=== PATIENT | female | born 1950 | race American Indian/Alaskan Native ===

== ENCOUNTER → 2016-06-22 | Outpatient (CLI) | payer MEDICARE, OTHER ==
[~2016-06-22] MED LIST: ALPRAZOLAM PO; AMITRIPTYLINE100 MG PO; AMITRYPTYLINE PO; ASPIRIN; ASPIRIN PO; ASPIRIN81 M1 PO; ASPIRIN81 MG PO; BP MED; CALCIUM + D 6001 TA1 PO; CIPROFLOXACIN500 M1 PO; FLEXERIL10 MG PO; HCTZ PO; HORMONE; IMITREX PO; K-DUR20 ME1 PO; KEPPRA500 MG PO; KLONOPIN; KLONOPIN PO; KLONOPIN0.5 MG PO; LISINOPRIL-HCTZ1 T16 PO; LORTAB 7.5-5001 TAB PO; LORTAB 7.51 TAB PO; PHENERGAN25 M1 PO; PROPRANOLOL PO; REGLAN10 MG PO; SOMA PO; TORADOL10 MG PO; TYLENOL #3 PO; VOLTAREN75 MG PO; WALGREEN'S PHARMACY; ZANAFLEX PO; ZANTAC; ZOLOFT; ZOLOFT PO; ZYRTEC
[2016-06-22 16:07] LABS: BUN/CREATININE RATIO 18.46; CALCIUM SERUM 9.4 mg/dL (8.4-10.2); CREATININE SERUM 1.3 mg/dL (0.6-1.4); GLOM FILT RATE Estimated 42.7 mL/min (>60); MAGNESIUM 2.5 mg/dL (1.6-3.0)
[2016-06-22 16:23] LABS: POTASSIUM 2.8 mmol/L (3.5-5.1)
== END | disposition home or self-care (01) ==
LOC: CECH 13:32
DX: R07.9 Chest pain, unspecified (principal); R60.9 Edema, unspecified
CPT/HCPCS: 36415; 80048; 83735; 93306

== ENCOUNTER → 2016-06-27 | Outpatient (CLI) | payer MEDICARE, OTHER ==
[2016-06-27 10:23] LABS: BUN/CREATININE RATIO 17.69; CALCIUM SERUM 9.6 mg/dL (8.4-10.2); CREATININE SERUM 1.3 mg/dL (0.6-1.4); GLOM FILT RATE Estimated 42.7 mL/min (>60); MAGNESIUM 2.3 mg/dL (1.6-3.0); POTASSIUM 3.7 mmol/L (3.5-5.1)
== END | disposition home or self-care (01) ==
LOC: CLAB 09:01
DX: R60.9 Edema, unspecified (principal)
CPT/HCPCS: 36415; 80048; 83735

== ENCOUNTER → 2016-07-09 | Outpatient (CLI) | payer MEDICARE, OTHER ==
--- NOTE | ~2016-07-09 | ST ---
Unit #: [id number] #: [id number] Patient: TAMARA GOMEZ ANDRES [id number] [address] [address] [id number] O MR#: [id number] NAME: TAMARA GOMEZ ANDRES : 1950 SEX: F STUDY DATE/TIME: UNIT: [facility] ROOM: STUDY DESCRIPTION: Stress Test Attending Physician: Britton Ellis M.D. Referring Physician: Britton Ellis M.D. Primary Care Physician: Dionne Sawant M.D. CARDIOLOGY REPORT EXAM ECG Portion INDICATIONS Chest discomfort, dyspnea. SUMMARY The patient underwent Lexiscan protocol. Patient's resting heart rate was 75 beats/minute which increased to 96 beats/minute representing 62% of the maximum age-predicted heart rate with Lexiscan infusion. The patient's resting blood pressure 130/71 mmHg which increased to 135/76 mmHg with Lexiscan infusion. Patient's resting ECG showed normal sinus rhythm with normal ST segments. Patient's stress ECG shows normal sinus rhythm with preserved ST segments. There is no ventricular or supraventricular ectopy noted. There are no pauses noted. CONCLUSION 1. Negative ECG portion of the Lexiscan stress test portion for ischemia. 2. Perfusion imaging to be dictated separately. Dictated by... Jaye Adame M.D. [place]/df TD: 07/10/2016 06:19 JOB #: [id number] CARDIOLOGY REPORT Page 1 of 1 X JAYE ADAME MD CARDIOLOGY REPORT
--- NOTE | ~2016-07-09 | TH ---
Unit #: [id number] #: [id number] Patient: TAMARA GOMEZ ANDRES [id number] [address] [address] [id number] O MR#: [id number] NAME: TAMARA GOMEZ ANDRES : 1950 SEX: F STUDY DATE/TIME: UNIT: [facility] ROOM: STUDY DESCRIPTION: Nuclear Study Attending Physician: Britton Ellis M.D. Referring Physician: Britton Ellis M.D. Primary Care Physician: Dionne Sawant M.D. CARDIOLOGY REPORT EXAM Perfusion Imaging INDICATIONS Chest discomfort, dyspnea. SUMMARY The patient underwent Lexiscan stress test. The patient received a resting dose of 10.16 mCi and a stress dose of 32.6 mCi. On gated imaging, the patient appears to have normal wall motion with a preserved ejection fraction. The patient's LVEF is 69%. On perfusion imaging, comparing rest and stress imaging, there appears to be no reversible perfusion defects. CONCLUSION 1. No obvious ischemia. 2. Preserved LV function with LVEF of 69%. 3. ECG portion as previously dictated. Dictated by... Jaye Adame M.D. [place]/df TD: 07/10/2016 06:33 JOB #: [id number] CARDIOLOGY REPORT Page 1 of 1 X JAYE ADAME MD CARDIOLOGY REPORT
== END | disposition home or self-care (01) ==
LOC: CNUC 07:47
DX: R07.9 Chest pain, unspecified (principal); R94.31 Abnormal electrocardiogram [ECG] [EKG]
CPT/HCPCS: 78452; 93017; A9500; J2785